=== PATIENT | female | born 1960 | race Caucasian/White ===

== ENCOUNTER 2018-05-01 15:41 | Emergency (ER) | payer BC ==
[~2018-05-01] VITALS: Ht 175.2 cm; Wt 129.7 kg
[~2018-05-01 15:41] MED LIST: LISINOPRIL AND1 TAB PO; NEXIUM40 MG PO; NKHM; PHENERGAN25 MG R; PROTONIX TR40 M1 PO; REGLAN10 MG PO; ZANTAC SYR150 MG/10 PO; ZOFRAN ODT4 MG SL; ZOFRAN4 MG PO
[2018-05-01] MEDS ORDERED: PREDNISONE20 M1 PO (18:45)
[2018-05-01] MEDS ORDERED: ROBAXIN500 M1 PO (18:45)
== END 2018-05-01 18:55 | disposition home or self-care (01) ==
LOC: ED 15:41
DX: S33.5XXA Sprain of ligaments of lumbar spine, initial encounter (principal); M54.31 Sciatica, right side; M25.551 Pain in right hip; H73.891 Other specified disorders of tympanic membrane, right ear; Z88.0 Allergy status to penicillin; Z88.1 Allergy status to other antibiotic agents; Z88.8 Allergy status to other drugs, medicaments and biological substances; Z79.899 Other long term (current) drug therapy; W01.0XXA Fall on same level from slipping, tripping and stumbling without subsequent striking against object, initial encounter; Y93.89 Activity, other specified; Y92.89 Other specified places as the place of occurrence of the external cause; Y99.8 Other external cause status

== ENCOUNTER 2018-10-25 21:58 | Emergency (ER) | payer OTHER ==
[~2018-10-25] VITALS: Ht 175.2 cm; Wt 256.0 kg
[~2018-10-25 21:58] MED LIST changes: +PREDNISONE20 M1 PO; +ROBAXIN500 M1 PO
[2018-10-25] MEDS ORDERED: CEPHALEXIN500 M1 PO (23:45)
== END 2018-10-26 00:09 | disposition home or self-care (01) ==
LOC: ED 21:58
DX: L03.116 Cellulitis of left lower limb (principal); Z79.899 Other long term (current) drug therapy; Z88.0 Allergy status to penicillin; Z88.1 Allergy status to other antibiotic agents; Z88.8 Allergy status to other drugs, medicaments and biological substances

== ENCOUNTER 2019-11-12 04:23 | Emergency (ER) | payer OTHER ==
[~2019-11-12] VITALS: Ht 175.2 cm; Wt 138.3 kg
[~2019-11-12 04:23] MED LIST changes: +CEPHALEXIN500 M1 PO
[2019-11-12 04:57] LABS: BILIRUBIN NEGATIVE; CLARITY TURBID (CLEAR); COLOR ORANGE (YELLOW); GLUCOSE NEGATIVE; KETONE NEGATIVE
[2019-11-12 04:58] LABS: BLOOD 3+ (NEGATIVE); LEUKO ESTERASE TRACE (NEGATIVE); NITRITE NEGATIVE (NEGATIVE); SPECIFIC GRAVITY > 1.030 (1.001-1.030)
[2019-11-12 04:59] LABS: EPITHELIAL CELLS 31-40; RBC TNTC rbc/hpf (0-2)
[2019-11-12 05:00] LABS: BACTERIA 1+
[2019-11-12 05:28] LABS: BUN 14 mg/dl (7-24); CHLORIDE 112 mmol/L (98-107); CREATININE 1.01 mg/dL (0.55-1.02); POTASSIUM 3.7 mmol/L (3.5-5.1); SODIUM 141 mmol/L (136-145)
[2019-11-12 06:00] LABS: BASO # 0.1 10*3/uL (0.0-0.1); BASO % 0.7 % (0.0-1.0); EOS # 0.2 10*3/uL (0.0-0.4); EOS % 2.8 % (1.0-4.0); HEMATOCRIT 42.6 % (37.0-47.0); LYMPH # 1.6 10*3/uL (1.3-4.4); LYMPH % 22.9 % (27.0-41.0); MEAN CELL VOLUME 90.4 fl (81.0-99.0); MEAN CORPUSCULAR HGB 29.5 pg (27.0-31.0); MEAN CORPUSCULAR HGB CONC 32.6 g/dl (33.0-37.0); MEAN PLATELET VOLUME 10.8 fl (9.6-12.3); MONO # 0.5 10*3/uL (0.1-1.0); MONO % 7.8 % (3.0-9.0); NEUT # 4.4 10*3/uL (2.3-7.9); NEUT % 64.5 % (47.0-73.0); PLATELET COUNT AUTOMATED 257 10*3/uL (130-400); RED BLOOD COUNT 4.71 10*6/uL (4.10-5.10); RED CELL DISTRI WIDTH 13.2 % (0-14.5); WHITE BLOOD COUNT 6.8 10*3/uL (4.8-10.8)
== END 2019-11-12 06:49 | disposition home or self-care (01) ==
LOC: ED 04:23
PROVIDERS: Emergency Medicine
DX: N23 Unspecified renal colic (principal); N20.1 Calculus of ureter; Z88.0 Allergy status to penicillin; Z88.8 Allergy status to other drugs, medicaments and biological substances; Z79.899 Other long term (current) drug therapy

== ENCOUNTER 2020-01-22 23:20 | Emergency (ER) | payer OTHER ==
[~2020-01-22] VITALS: Ht 175.2 cm; Wt 124.3 kg
[2020-01-23 00:06] LABS: BASO # 0.1 10*3/uL (0.0-0.1); BASO % 0.7 % (0.0-1.0); EOS # 0.2 10*3/uL (0.0-0.4); EOS % 2.2 % (1.0-4.0); HEMATOCRIT 41.3 % (37.0-47.0); LYMPH # 1.8 10*3/uL (1.3-4.4); LYMPH % 25.2 % (27.0-41.0); MEAN CELL VOLUME 92.4 fl (81.0-99.0); MEAN CORPUSCULAR HGB 29.5 pg (27.0-31.0); MEAN PLATELET VOLUME 10.5 fl (9.6-12.3); MONO # 0.8 10*3/uL (0.1-1.0); MONO % 10.4 % (3.0-9.0); NEUT # 4.5 10*3/uL (2.3-7.9); NEUT % 61.1 % (47.0-73.0); PLATELET COUNT AUTOMATED 233 10*3/uL (130-400); RED BLOOD COUNT 4.47 10*6/uL (4.10-5.10); RED CELL DISTRI WIDTH 13.2 % (0-14.5); WHITE BLOOD COUNT 7.3 10*3/uL (4.8-10.8)
[2020-01-23 00:17] LABS: CREATININE 1.2 mg/dL (0.55-1.02); POTASSIUM 4.1 mmol/L (3.5-5.1); URIC ACID 7.7 mg/dL (2.6-6.0)
[2020-01-23] MEDS ORDERED: COLCHICINE0.6 M1 PO (00:31)
[2020-01-23] MEDS ORDERED: MEDROL DOSEPAK4 MG PO (18:23)
== END 2020-01-23 00:49 | disposition home or self-care (01) ==
LOC: ED 23:20
PROVIDERS: Nurse Practitioner Family
DX: M10.9 Gout, unspecified (principal); Z88.0 Allergy status to penicillin; Z79.899 Other long term (current) drug therapy; Z88.8 Allergy status to other drugs, medicaments and biological substances

== ENCOUNTER 2020-01-23 17:58 | Emergency (ER) | payer OTHER ==
[~2020-01-23 17:58] MED LIST changes: +COLCHICINE0.6 M1 PO
[2020-01-23] MEDS ORDERED: MEDROL DOSEPAK4 MG PO (18:23)
== END 2020-01-23 18:25 | disposition home or self-care (01) ==
LOC: ED 17:58
DX: M10.9 Gout, unspecified (principal); K21.9 Gastro-esophageal reflux disease without esophagitis; I10 Essential (primary) hypertension; Z88.0 Allergy status to penicillin; Z88.8 Allergy status to other drugs, medicaments and biological substances; Z79.899 Other long term (current) drug therapy

== ENCOUNTER → 2021-02-22 | Outpatient (CLI) | payer OTHER ==
[~2021-02-22] MED LIST changes: +MEDROL DOSEPAK4 MG PO
== END | disposition home or self-care (01) ==
LOC: COVID19 16:48
PROVIDERS: ATTEND Student in an Organized Health Care Education/Training Program
DX: U07.1 COVID-19 (principal)

== ENCOUNTER 2022-10-19 13:08 | Emergency (ER) | payer OTHER ==
[~2022-10-19] VITALS: Wt 76.7 kg
[2022-10-19] MEDS ORDERED: LISINOPRIL40 MG PO (14:10)
[2022-10-19] MEDS ORDERED: FEBUXOSTAT40 MG PO (14:10)
[2022-10-19] MEDS ORDERED: VITAMIN D350 MCG PO (14:11)
[2022-10-19] MEDS ORDERED: PAROXETINE HCL20 MG PO (14:11)
[2022-10-19 14:30] LABS: BILIRUBIN Negative (Negative); BLOOD 3+ (Negative); CLARITY Cloudy (Clear); COLOR Orange (Yellow); GLUCOSE Negative (Negative); KETONE Negative (Negative); LEUKO ESTERASE 1+ (Negative); NITRITE Negative (Negative); SPECIFIC GRAVITY 1.015 (1.001-1.030); UROBILINOGEN 0.2 E.U./dl (0.0-1.0)
[2022-10-19 14:37] LABS: BACTERIA 1+; RBC TNTC rbc/hpf (0-2)
[2022-10-19 14:57] LABS: BASO % 0.6 % (0.0-1.0); EOS # 0.1 10*3/uL (0.0-0.4); EOS % 1.3 % (1.0-4.0); HEMATOCRIT 42.2 % (37.0-47.0); LYMPH % 14.2 % (27.0-41.0); MEAN CELL VOLUME 92.3 fl (81.0-99.0); MEAN CORPUSCULAR HGB 30.4 pg (27.0-31.0); MEAN CORPUSCULAR HGB CONC 32.9 g/dl (33.0-37.0); MONO # 0.5 10*3/uL (0.1-1.0); MONO % 7.5 % (3.0-9.0); NEUT # 5.5 10*3/uL (2.3-7.9); PLATELET COUNT AUTOMATED 242 10*3/uL (130-400); RED BLOOD COUNT 4.57 10*6/uL (4.10-5.10); RED CELL DISTRI WIDTH 13.2 % (0-14.5); WHITE BLOOD COUNT 7.2 10*3/uL (4.8-10.8)
[2022-10-19 15:18] LABS: ALKALINE PHOSPHATASE 68 U/L (46-116); BUN 12 mg/dl (9-23); CHLORIDE 106 mmol/L (98-107); POTASSIUM 4.1 mmol/L (3.4-5.1); TOTAL PROTEIN 7.7 gm/dL (6.0-8.0); URIC ACID 5.6 mg/dL (3.1-7.8)
[2022-10-19 15:25] LABS: SGPT/ALT < 7 U/L (10-49)
[2022-10-19] MEDS ORDERED: ONDANSETRON HYDR4 M1 PO (15:48)
[2022-10-19] MEDS ORDERED: FLOMAX0.4 MG PO (15:48)
== END 2022-10-19 16:01 | disposition home or self-care (01) ==
LOC: ED 13:08
PROVIDERS: Nurse Practitioner Family
DX: N20.0 Calculus of kidney (principal); M54.50 Low back pain, unspecified; R19.7 Diarrhea, unspecified; M79.89 Other specified soft tissue disorders; M79.674 Pain in right toe(s); Z87.442 Personal history of urinary calculi; Z88.0 Allergy status to penicillin; Z88.1 Allergy status to other antibiotic agents; Z88.8 Allergy status to other drugs, medicaments and biological substances; Z79.899 Other long term (current) drug therapy; Z90.49 Acquired absence of other specified parts of digestive tract; Z90.711 Acquired absence of uterus with remaining cervical stump

== ENCOUNTER → 2022-11-27 | Outpatient (CLI) | payer OTHER ==
[~2022-11-27] MED LIST changes: +FEBUXOSTAT40 MG PO; +FLOMAX0.4 MG PO; +LISINOPRIL40 MG PO; +ONDANSETRON HYDR4 M1 PO; +PAROXETINE HCL20 MG PO; +VITAMIN D350 MCG PO
== END | disposition home or self-care (01) ==
LOC: US 12:39
PROVIDERS: ATTEND Urology
DX: N20.1 Calculus of ureter (principal)

== ENCOUNTER 2023-12-30 20:07 | Emergency (ER) | payer OTHER ==
[~2023-12-30] VITALS: Ht 175.2 cm; Wt 125.6 kg
[2023-12-30] MEDS ORDERED: ACETAMINOPHEN 325 MG TAB PO ONE (20:50)
== END 2023-12-30 22:27 | disposition home or self-care (01) ==
LOC: ED 20:07
DX: S16.1XXA Strain of muscle, fascia and tendon at neck level, initial encounter (principal); M25.562 Pain in left knee; M25.511 Pain in right shoulder; K21.9 Gastro-esophageal reflux disease without esophagitis; I10 Essential (primary) hypertension; M79.7 Fibromyalgia; Z88.0 Allergy status to penicillin; Z88.1 Allergy status to other antibiotic agents; Z88.8 Allergy status to other drugs, medicaments and biological substances; Z90.49 Acquired absence of other specified parts of digestive tract; Z98.890 Other specified postprocedural states; Z90.710 Acquired absence of both cervix and uterus; V40.5XXA Car driver injured in collision with pedestrian or animal in traffic accident, initial encounter; Y93.89 Activity, other specified; Y92.410 Unspecified street and highway as the place of occurrence of the external cause; Y99.8 Other external cause status

== ENCOUNTER 2025-02-11 09:47 | Emergency (ER) | payer MEDICARE ==
[~2025-02-11] VITALS: Ht 175.2 cm; Wt 136.1 kg
[2025-02-11] MEDS ORDERED: Albuterol Sulf/Ipratropium 3 ML VIAL NEB ONE (10:20)
[2025-02-11] MEDS ORDERED: Dexamethasone Sodium Phospha 20 MG/5 ML VIAL IV ONE (10:20)
[2025-02-11] MEDS ORDERED: SODIUM CHLORIDE 0.9% 500 ML IV ONE (10:20)
[2025-02-11 10:40] LABS: BASO # 0.1 10*3/uL (0.0-0.1); BASO % 1.1 % (0.0-1.0); EOS # 0.5 10*3/uL (0.0-0.4); EOS % 5.8 % (1.0-4.0); MEAN CELL VOLUME 91.7 fl (81.0-99.0); MEAN CORPUSCULAR HGB 29.8 pg (27.0-31.0); MEAN PLATELET VOLUME 9.6 fl (9.6-12.3); MONO # 0.7 10*3/uL (0.1-1.0); MONO % 8.1 % (3.0-9.0); NEUT # 5.4 10*3/uL (2.3-7.9); NEUT % 64.9 % (47.0-73.0); NUCLEATED RED BLOOD CELL 0.0 % (0.0-0.0); NUCLEATED RED BLOOD CELL 0.0 10*3/uL (0.0-0.0); PLATELET COUNT AUTOMATED 285 10*3/uL (130-400); RED CELL DISTRI WIDTH 13.7 % (0-14.5)
[2025-02-11 11:00] LABS: BUN 18 mg/dl (9-23)
[2025-02-11] MEDS ORDERED: PREDNISONE20 M1 PO ×2 (12:59→13:03)
[2025-02-11] MEDS ORDERED: LISINOPRIL40 MG PO ×2 (12:59→13:03)
[2025-02-11] MEDS ORDERED: VENTOLIN 02.5 MG/3 M INH ×2 (12:59→13:03)
[2025-02-11] MEDS ORDERED: VENT7GM INH ×2 (12:59→13:03)
== END 2025-02-11 13:14 | disposition home or self-care (01) ==
LOC: ED 09:47
PROVIDERS: Emergency Medicine
DX: J45.901 Unspecified asthma with (acute) exacerbation (principal); J20.9 Acute bronchitis, unspecified; K21.9 Gastro-esophageal reflux disease without esophagitis; I10 Essential (primary) hypertension; M79.7 Fibromyalgia; F41.9 Anxiety disorder, unspecified; M10.9 Gout, unspecified; Z90.710 Acquired absence of both cervix and uterus; Z90.49 Acquired absence of other specified parts of digestive tract; Z88.0 Allergy status to penicillin; Z88.1 Allergy status to other antibiotic agents; Z88.8 Allergy status to other drugs, medicaments and biological substances; Z20.822 Contact with and (suspected) exposure to COVID-19